=== PATIENT | male | born 1955 | race Caucasian/White ===

== ENCOUNTER 2018-12-09 17:45 | Emergency (ER) | payer OTHER ==
[~2018-12-09] VITALS: Ht 188 cm; Wt 127.0 kg
[2018-12-09] MEDS ORDERED: LISINOPRIL40 MG PO (17:57)
[2018-12-09] MEDS ORDERED: AMLODIPINE BESY10 MG PO (17:58)
[2018-12-09] MEDS ORDERED: MAGOX 400400 MG PO (17:58)
[2018-12-09] MEDS ORDERED: POTASSIUM CITR15 MEQ PO (18:00)
[2018-12-09] MEDS ORDERED: SINGULAIR 10 MG10 M1 PO (18:00)
[2018-12-09 18:09] LABS: ABSOLUTE BASOPHILS 0.1 thou/uL (0.0-0.2); ABSOLUTE EOSINOPHILS 0.1 thou/uL (0.0-0.7); ABSOLUTE LYMPHOCYTES 1.9 thou/uL (0.8-5.3); ABSOLUTE MONOCYTES 0.7 thou/uL (0.0-1.2); ABSOLUTE NEUTROPHILS 4.9 thou/uL (1.6-8.1); BASOPHILS 0.8 %; EOSINOPHILS 1.6 %; HEMATOCRIT 44.8 % (42.0-52.0); LYMPHOCYTES 24.8 %; MCH 28.6 pg (26.0-34.0); MCHC 33.5 g/dL (28.0-37.0); MCV 85.2 fL (80.0-100.0); MONOCYTES 9.6 %; MPV 8.5 fl. (7.2-11.1); NUCLEATED RBCS 0 /100WBC; PLATELET COUNT* 251 thou/uL (150-400); POLYS 63.2 %; RBC 5.27 mil/uL (4.50-6.00); RDW-CV 14.1 % (10.5-14.5); WBC 7.8 thou/uL (4.0-11.0)
[2018-12-09 18:21] LABS: APTT 26.4 Seconds (25.0-31.3); PROTIME 10.4 Seconds (9.20-11.50)
[2018-12-09 18:27] LABS: ANION GAP 5 mmol/L (7-16); BUN 14 mg/dL (7-18); CALCIUM 8.9 mg/dL (8.5-10.1); CHLORIDE 105 mmol/L (98-107); CO2 30 mmol/L (21-32); GLUCOSE 90 mg/dL (70-99); POTASSIUM 3.7 mmol/L (3.5-5.1); SODIUM 140 mmol/L (136-145)
[2018-12-09 18:34] LABS: ALKALINE PHOSPHATASE 85 U/L (46-116); LIPASE 124 U/L (73-393); NT-PRO BRAIN NAT PEPTIDE 20 pg/mL (<300); SGOT 20 U/L (15-37); SGPT 28 U/L (30-65); TOTAL BILIRUBIN 0.7 mg/dL (<0.1-1.0); TOTAL PROTEIN 7.3 g/dL (6.4-8.2); TROPONIN-I LEVEL <0.06 ng/mL (<0.06)
[2018-12-09 18:39] VITALS: BP 116/79
[2018-12-09] MEDS ORDERED: NAPROSYN500 MG PO (18:39)
--- NOTE | 2018-12-10 12:41 | EKG ---
[place] [address] ELECTROCARDIOGRAM REPORT Name: DANIELLA HERRERA Room: 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
== END 2018-12-09 18:47 | disposition home or self-care (01) ==
LOC: M.ERS 17:45
PROVIDERS: Emergency Medicine
DX: R07.89 Other chest pain (principal); I48.91 Unspecified atrial fibrillation; I10 Essential (primary) hypertension; Z96.652 Presence of left artificial knee joint